=== PATIENT | female | born 1965 | race American Indian/Alaskan Native ===

== ENCOUNTER 2019-05-22 09:00 | Inpatient (IN) | payer BC, OTHER ==
[2019-05-22 09:50] LABS: Basophils # (Auto) 0.1 K/mm3 (0.0-0.1); Eosinophils # (Auto) 0.3 K/mm3 (0.0-0.4); Eosinophils % (Auto) 2.8 % (0.0-4.3); Hematocrit 38.3 % (30.3-42.9); Hemoglobin 12.7 gm/dl (10.1-14.3); Lymphocytes # (Auto) 1.9 K/mm3 (1.2-5.4); Lymphocytes % (Auto) 21.1 % (13.4-35.0); Mean Corpuscular HGB Conc 33 % (30-34); Mean Corpuscular Volume 89 fl (79-97); Monocytes # (Auto) 0.5 K/mm3 (0.0-0.8); Monocytes % (Auto) 5.3 % (0.0-7.3); Platelet Count 167 K/mm3 (140-440); Red Blood Count 4.28 M/mm3 (3.65-5.03); Red Cell Distribution Width 15.9 % (13.2-15.2)
--- NOTE | 2019-05-22 09:55 | XRay Report ---
CHEST 2 VIEWS INDICATION: Chest pain for 2 days. COMPARISON: None FINDINGS: Support devices: None. Heart: Mild cardiomegaly. Lungs/pleura: Mild to moderate pulmonary venous congestion. The lungs are generally clear otherwise. No evidence for consolidation, pleural effusion or pneumothorax. Additional findings: None. IMPRESSION: Cardiomegaly and pulmonary venous congestion and Signer Name: Ilir Tovar Jr, MD Signed: 05/22/2019 9:51 AM Workstation Name: [id number]
[2019-05-22 10:07] LABS: BUN/Creatinine Ratio 18; Blood Urea Nitrogen 14 mg/dL (7-17); Calcium 8.8 mg/dL (8.4-10.2); Hemolysis Index 5
[2019-05-22] MEDS ORDERED: DUONEB *Not for PRN Use IH ONE (10:13)
[2019-05-22] MEDS ORDERED: APRESOLINE IV ONE (10:13)
--- NOTE | 2019-05-22 10:18 | Emergency Department Report ---
ED Chest Pain HPI - General Chief Complaint: Chest Pain Stated Complaint: CHAD/CHEST TIGHT Time Seen by Provider: 05/22/19 10:02 Source: patient Mode of arrival: Ambulatory Limitations: No Limitations - History of Present Illness Initial Comments: This 53-year-old -[place] female presents to the emergency department with a one-day history of some generalized chest tightness and shortness of breath. She denies any fever, nausea, vomiting, back pain or diaphoresis. Patient presents with elevated blood pressure but did not take her morning blood pressure medications other than wearing a clonidine patch that lasts for 7 days. She has a past medical history of hypertension and CVA without residual deficits. She otherwise has not taken anything for her symptoms prior to presentation. No lower extremity edema. She says that her son just from congestive heart failure. No recent travel. She has a primary care physician but has not seen them regarding her symptoms. - Related Data Home Medications Medication Instructions Recorded Confirmed Last Taken Aspirin [Aspirin BABY CHEW TAB] 81 mg PO QDAY 07/27/15 05/22/19 05/21/19 Labetalol [Normodyne] 200 mg PO TID 07/27/15 05/22/19 05/21/19 Levothyroxine [Synthroid] 75 mcg PO QAM 07/27/15 05/22/19 05/21/19 NIFEdipine XL [Procardia Xl] 1.5 tab PO DAILY 07/27/15 05/22/19 05/21/19 Previous Rx's Medication Instructions Recorded Last Taken Type HYDROcodone/APAP 5-325 [[place] 1 each PO Q6HR PRN #20 tablet 07/27/15 05/21/19 Rx 5/325] Allergies Allergy/AdvReac Type Severity Reaction Status Date / Time No Known Allergies Allergy Unverified 07/27/15 09:04 Heart Score - HEART Score History: Moderately suspicious EKG: Normal Age: 45-65 Risk factors: 1-2 risk factors Troponin: < normal limit HEART Score: 3 ED Review of Systems ROS: Stated complaint: CHAD/CHEST TIGHT Other details as noted in HPI Comment: All other systems reviewed and negative Constitutional: denies: chills, fever Eyes: denies: eye pain, vision change ENT: denies: ear pain, throat pain Respiratory: shortness of breath. denies: cough Cardiovascular: chest pain. denies: edema Gastrointestinal: denies: abdominal pain, vomiting Genitourinary: denies: dysuria, discharge Musculoskeletal: denies: back pain, arthralgia Skin: denies: rash, lesions Neurological: denies: headache, weakness ED Past Medical Hx - Past Medical History Hx Hypertension: Yes Hx CVA: Yes - Social History Smoking Status: Never Smoker Substance Use Type: None - Medications Home Medications: Home Medications Medication Instructions Recorded Confirmed Last Taken Type Aspirin [Aspirin BABY CHEW TAB] 81 mg PO QDAY 07/27/15 05/22/19 05/21/19 History HYDROcodone/APAP 5-325 [[place] 1 each PO Q6HR PRN #20 tablet 07/27/15 05/22/19 05/21/19 Rx 5/325] Labetalol [Normodyne] 200 mg PO TID 07/27/15 05/22/19 05/21/19 History Levothyroxine [Synthroid] 75 mcg PO QAM 07/27/15 05/22/19 05/21/19 History NIFEdipine XL [Procardia Xl] 1.5 tab PO DAILY 07/27/15 05/22/19 05/21/19 History ED Physical Exam - General Limitations: No Limitations - Other Other exam information: GENERAL: The patient is well-developed well-nourished. HENT: Normocephalic. Atraumatic. Patient has moist mucous membranes. EYES: Extraocular motions are intact. NECK: Supple. Trachea is midline. CHEST/LUNGS: Coarse breath sounds at the chest. No tachypnea or accessory muscle use. There is no respiratory distress noted. HEART/CARDIOVASCULAR: Regular. There is no tachycardia. There is no murmur. ABDOMEN: Abdomen is soft, nontender. Patient has normal bowel sounds. There is no abdominal distention. SKIN: Skin is warm and dry. NEURO: The patient is awake, alert, and oriented. The patient is cooperative. The patient has no focal neurologic deficits. Normal speech. MUSCULOSKELETAL: There is no tenderness or deformity. There is no evidence of acute injury. ED Course Vital Signs 05/22/19 05/22/19 05/22/19 09:06 10:11 10:42 Temperature 98.2 F Pulse Rate 63 58 L 60 Pulse Rate [ Bilateral] Respiratory 20 16 Rate Respiratory Rate [Bilateral ] Blood Pressure 215/123 186/98 Blood Pressure 194/106 [Left] O2 Sat by Pulse 99 99 Oximetry 05/22/19 05/22/19 05/22/19 11:12 11:28 12:32 Temperature Pulse Rate Pulse Rate [ 58 L Bilateral] Respiratory Rate Respiratory 20 Rate [Bilateral ] Blood Pressure Blood Pressure 165/86 146/79 [Left] O2 Sat by Pulse Oximetry NAZANIN score - Nazanin Score Age > 65: (0) No Aspirin use within the Past 7 Days: (0) No 3 or more CAD Risk Factors: (0) No 2 or more Angina events in past 24 hrs: (1) Yes Known CAD with more than 50% Stenosis: (0) No Elevated Cardiac Markers: (0) No ST Deviation Greater than 0.5mm: (0) No NAZANIN Score: 1 ED Medical Decision Making - Lab Data Result diagrams: 05/22/19 09:35 05/22/19 09:35 - EKG Data -: EKG Interpreted by Me EKG shows normal: sinus rhythm, axis, intervals, QRS complexes (LVH), ST-T waves (t wave inversions lateral leads) Rate: normal - EKG Data When compared to previous EKG there are: previous EKG unavailable Interpretation: LVH (and T wave inversions to lateral leads) - Radiology Data Radiology results: report reviewed, image reviewed interpreted by me: Chest x-ray shows some cardio megaly and pulmonary vascular congestion. CTA CHEST WITH CONTRAST INDICATION : Chest pain, elevated d-dimer. TECHNIQUE: Axial imaging performed through the chest, with contrast bolus timing set to maximize opacification of the pulmonary arteries. Sagittal and coronal reformatted images. 3-plane MIP reformatted images were obtained. All CT scans at this location are performed using CT dose reduction for ALARA by means of automated exposure control. 100 mL of intravenous contrast administered. COMPARISON: None FINDINGS: Bolus: Contrast bolus timing is adequate. PTE: No filling defect is present to suggest PTE. Mediastinum: Mild cardiomegaly is evident. No pericar dial effusion. The thoracic aorta is within normal limits. The thyroid gland, tracheobronchial tree and esophagus are unremarkable. No pathologic mediastinal adenopathy. Lungs: Moderate pulmonary venous congestion is evident. No evidence for underlying parenchymal lung disease, mass or consolidation. No pneumothorax. Small layering left pleural effusion and moderate layering right pleural effusion are identified. 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 There is no obvious bony destruction or associated soft tissue mass. Upper abdomen: Limited imaging of the upper abdomen shows nothing acute. IMPRESSION: No evidence for pulmonary embolus. Findings compatible with volume overload or mild CHF. 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 Please correlate with the patient and consider further imaging with MRI with and without contrast if bone pain is present. - Medical Decision Making This patient presents with some generalized chest tightness and shortness of breath that has been going on since last night. Chest x-ray shows some p ulmonary vascular congestion and cardiomegaly. Labs show a BNP greater than 1000 and a slightly elevated an equivocal d-dimer. CT angiography of the chest shows no pulmonary embolism but does show some findings compatible with CHF. She was given a breathing treatment, some pain medication and a dose of Lasix to start diuresis. Patient will be admitted to the hospital for further evaluation for her new onset CHF and was sent for admission by the hospitalist, Dr. Burroughs. - Differential Diagnosis CHF, PE, PA, Pneumonia Critical Care Time: No Critical care attestation.: If time is entered above; I have spent that time in minutes in the direct care of this critically ill patient, excluding procedure time. ED Disposition Clinical Impression: Acute chest pain, New onset of congestive heart failure Hypertension Qualifiers: Hypertension type: essential hypertension Qualified Code(s): I10 - Essential (primary) hypertension Disposition: OP ADMIT IP TO THIS HOSP Is pt being admited?: Yes Condition: Fair Time of Disposition: 12:01
[2019-05-22] MEDS ORDERED: BABY ASPIRIN PO ONE (10:32)
[2019-05-22] MEDS ORDERED: LASIX IV ONE (11:01)
--- NOTE | 2019-05-22 12:37 | Cat Scan Report ---
CTA CHEST WITH CONTRAST INDICATION : Chest pain, elevated d-dimer. TECHNIQUE: Axial imaging performed through the chest, with contrast bolus timing set to maximize opa cification of the pulmonary arteries. Sagittal and coronal reformatted images. 3-plane MIP reformatte d images were obtained. All CT scans at this location are performed using CT dose reduction for ALAR A by means of automated exposure control. 100 mL of intravenous contrast administered. COMPARISON: None FINDINGS: Bolus: Contrast bolus timing is adequate. PTE: No filling defect is present to suggest PTE. Mediastinum: Mild cardiomegaly is evident. No pericardial effusion. The thoracic aorta is within nor mal limits. The thyroid gland, tracheobronchial tree and esophagus are unremarkable. No pathologic m ediastinal adenopathy. Lungs: Moderate pulmonary venous congestion is evident. No evidence for underlying parenchymal lung disease, mass or consolidation. No pneumothorax. Small layering left pleural effusion and moderate la yering right pleural effusion are identified. 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 There is no obvious bony destruction or associated soft tissue mass. Upper abdomen: Limited imaging of the upper abdomen shows nothing acute. IMPRESSION: No evidence for pulmonary embolus. Findings compatible with volume overload or mild CHF. 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 Please correlate with the patient and consider further imaging with MRI with and without contrast if bone pain is present. Signer Name: Ilir Tovar Jr, MD Signed: 05/22/2019 12:33 PM Workstation Name: [id number]
--- NOTE | 2019-05-22 18:41 | History and Physical Report ---
History of Present Illness Date of examination: 05/22/19 Date of admission: 05/22/19 12:01 Chief complaint: Chest pain 1 day History of present illness: 53 y/o AAF with Hx of Htn and Hypothyroidism comes in for chest tightness of 1 day.Chest tightness is retrosternal.Pain is 7 on a scale of 1 to 10. No palpitations or diaphoresis. No exacerbating or relieving factors. No fever or chills. Patient had a cerebrovascular accident without residual deficits in the past. No recent travel. No shortness of breath on exertion. Past Medical History Hypertension CVA Hypothyroidism past surgical history None Family history HTN Social history Never Smoker Medications Home Medications: Home Medications Medication Instructions Recorded Confirmed Last Taken Type Aspirin [Aspirin BABY CHEW TAB] 81 mg PO QDAY 07/27/15 05/22/19 05/21/19 History HYDROcodone/APAP 5-325 [[place] 1 each PO Q6HR PRN #20 tablet 07/27/15 05/22/19 05/21/19 Rx 5/325] Labetalol [Normodyne] 200 mg PO TID 07/27/15 05/22/19 05/21/19 History Levothyroxine [Synthroid] 75 mcg PO QAM 07/27/15 05/22/19 05/21/19 History NIFEdipine XL [Procardia Xl] 1.5 tab PO DAILY 07/27/15 05/22/19 05/21/19 History Review of Systems ROS: Stated complaint: CHAD/CHEST TIGHT Other details as noted in HPI Comment: All other systems reviewed and negative Constitutional: denies: chills, fever Eyes: denies: eye pain, vision change ENT: denies: ear pain, throat pain Respiratory: shortness of breath. denies: cough Cardiovascular: chest pain. denies: edema Gastrointestinal: denies: abdominal pain, vomiting Genitourinary: denies: dysuria, discharge Musculoskeletal: denies: back pain, arthralgia Skin: denies: rash, lesions Neurological: denies: headache, weakness Medications and Allergies Allergies Allergy/AdvReac Type Severity Reaction Status Date / Time No Known Allergies Allergy Unverified 07/27/15 09:04 Home Medications Medication Instructions Recorded Confirmed Last Taken Type Aspirin [Aspirin BABY CHEW TAB] 81 mg PO QDAY 07/27/15 05/22/19 05/21/19 History HYDROcodone/APAP 5-325 [[place] 1 each PO Q6HR PRN #20 tablet 07/27/15 05/22/19 05/21/19 Rx 5/325] Labetalol [Normodyne] 200 mg PO TID 07/27/15 05/22/19 05/21/19 History Levothyroxine [Synthroid] 75 mcg PO QAM 07/27/15 05/22/19 05/21/19 History NIFEdipine XL [Procardia Xl] 1.5 tab PO DAILY 07/27/15 05/22/19 05/21/19 History Exam - Constitutional Vitals: Temp Pulse Resp BP Pulse Ox 98.4 F 65 18 164/93 98 05/22/19 16:22 05/22/19 16:22 05/22/19 16:22 05/22/19 16:22 05/22/19 16:22 General appearance: Present: no acute distress, well-nourished - EENT Eyes: Present: PERRL ENT: hearing intact, clear oral mucosa - Neck Neck: Present: supple, normal ROM - Respiratory Respiratory effort: normal Respiratory: bilateral: CTA - Cardiovascular Heart rate: 63 Rhythm: regular Heart Sounds: Present: S1 & S2. Absent: rub, click - Extremities Extremities: no ischemia, pulses intact, pulses symmetrical, No edema Peripheral Pulses: within normal limits - Abdominal General gastrointestinal: Present: soft, non-tender, non-distended, normal bowel sounds Female genitourinary: Present: normal - Rectal Rectal Exam: deferred - Integumentary Integumentary: Present: clear, warm, dry - Musculoskeletal Musculoskeletal: gait normal, strength equal bilaterally - Psychiatric Psychiatric: appropriate mood/affect, intact judgment & insight - Neurologic Neurologic: CNII-XII intact, moves all extremities Results - Labs CBC & Chem 7: 05/22/19 09:35 05/22/19 09:35 Labs: Laboratory Last Values WBC 9.1 K/mm3 (4.5-11.0) 05/22/19 09:35 RBC 4.28 M/mm3 (3.65-5.03) 05/22/19 09:35 Hgb 12.7 gm/dl (10.1-14.3) 05/22/19 09:35 Hct 38.3 % (30.3-42.9) 05/22/19 09:35 MCV 89 fl (79-97) 05/22/19 09:35 MCH 30 pg (28-32) 05/22/19 09:35 MCHC 33 % (30-34) 05/22/19 09:35 RDW 15.9 % (13.2-15.2) H 05/22/19 09:35 Plt Count 167 K/mm3 (140-440) 05/22/19 09:35 Lymph % (Auto) 21.1 % (13.4-35.0) 05/22/19 09:35 [place] % (Auto) 5.3 % (0.0-7.3) 05/22/19 09:35 Eos % (Auto) 2.8 % (0.0-4.3) 05/22/19 09:35 Baso % (Auto) 1.0 % (0.0-1.8) 05/22/19 09:35 Lymph # 1.9 K/mm3 (1.2-5.4) 05/22/19 09:35 [place] # 0.5 K/mm3 (0.0-0.8) 05/22/19 09:35 Eos # 0.3 K/mm3 (0.0-0.4) 05/22/19 09:35 Baso # 0.1 K/mm3 (0.0-0.1) 05/22/19 09:35 Seg Neutrophils % 69.8 % (40.0-70.0) 05/22/19 09:35 Seg Neutrophils # 6.4 K/mm3 (1.8-7.7) 05/22/19 09:35 253.08 ng/mlDDU (0-234) H 05/22/19 10:14 Sodium 141 mmol/L (137-145) 05/22/19 09:35 Potassium 3.9 mmol/L (3.6-5.0) 05/22/19 09:35 Chloride 104.7 mmol/L (98-107) 05/22/19 09:35 Carbon Dioxide 25 mmol/L (22-30) 05/22/19 09:35 15 mmol/L 05/22/19 09:35 BUN 14 mg/dL (7-17) 05/22/19 09:35 0.8 mg/dL (0.7-1.2) 05/22/19 09:35 Estimated GFR > 60 ml/min 05/22/19 09:35 18 % 05/22/19 09:35 Glucose 115 mg/dL (65-100) H 05/22/19 09:35 Calcium 8.8 mg/dL (8.4-10.2) 05/22/19 09:35 < 0.010 ng/mL (0.00-0.029) 05/22/19 15:01 NT-Pro-B Natriuret Pep 1007 pg/mL (0-900) H 05/22/19 09:35 TSH 7.440 mlU/mL (0.270-4.200) H 05/22/19 10:14 Free T4 0.81 ng/dL (0.76-1.46) 05/22/19 11:18 Short CBC 05/22/19 Range/Units 09:35 WBC 9.1 (4.5-11.0) K/mm3 Hgb 12.7 (10.1-14.3) gm/dl Hct 38.3 (30.3-42.9) % Plt Count 167 (140-440) K/mm3 [facility] 05/22/19 09:35 Sodium 141 Potassium 3.9 Chloride 104.7 Carbon Dioxide 25 BUN 14 Creatinine 0.8 Glucose 115 H Calcium 8.8 Cardiac Enzymes 05/22/19 05/22/19 05/22/19 Range/Units 09:35 13:37 15:01 Troponin T < 0.010 < 0.010 < 0.010 (0.00-0.029) ng/mL - Imaging and Cardiology EKG: report reviewed (normal sinus rhythm 63/m left ventricular hypertrophy) Chest x-ray: report reviewed (cardiomegaly and pulmonary venous congestion) Assessment and Plan Advance Directives: Yes (Full code) VTE prophylaxis?: Chemical Plan of care discussed with patient/family: Yes - Patient Problems (1) Acute chest pain Current Visit: Yes Status: Acute Plan to address problem: chest pain ==r/o [place] protocol Serial Troponins Lexiscan in AM Cardiolgy consult requested (2) Hypertension Current Visit: Yes Status: Acute Qualifiers: Hypertension type: essential hypertension Qualified Code(s): I10 - Essential (primary) hypertension Plan to address problem: Cont antihypertensives (3) Hypothyroidism Current Visit: Yes Status: Chronic Qualifiers: Hypothyroidism type: acquired Qualified Code(s): E03.9 - Hypothyroidism, unspecified Plan to address problem: Cont [id number] mcg po qd Check TSH (4) DVT prophylaxis Current Visit: Yes Status: Acute Plan to address problem: Initiated on Lovenox and GI prophylaxis
[2019-05-22] MEDS ORDERED: DILAUDID IV PRN (18:42)
[2019-05-22] MEDS ORDERED: ZOFRAN IV PRN ×2 (18:42→18:48)
[2019-05-22] MEDS ORDERED: SODIUM CHLORIDE FLUSH SYRINGE 10 ML IV PRN ×2 (18:42→18:48)
[2019-05-22] MEDS ORDERED: TYLENOL PO PRN ×2 (18:42→18:48)
[2019-05-22] MEDS ORDERED: PERCOCET 5/325 PO PRN (18:42)
[2019-05-22] MEDS: PROCARDIA XL PO SCH (21:20)
[2019-05-22] MEDS: BABY ASPIRIN PO SCH (21:20)
[2019-05-22] MEDS: NORMODYNE PO SCH (21:20)
[2019-05-22] MEDS: PEPCID IV SCH (21:20)
[2019-05-22] MEDS: SODIUM CHLORIDE FLUSH SYRINGE 10 ML IV SCH (21:21)
[2019-05-22] MEDS ORDERED: SODIUM CHLORIDE FLUSH SYRINGE 10 ML IV SCH (22:00)
[2019-05-23] MEDS: SYNTHROID PO SCH (05:05)
[2019-05-23 06:51] LABS: Alanine Aminotransferase 12 units/L (7-56); Albumin 3.6 g/dL (3.9-5); BUN/Creatinine Ratio 25; Blood Urea Nitrogen 20 mg/dL (7-17); Calcium 8.8 mg/dL (8.4-10.2); Hemolysis Index 30
--- NOTE | 2019-05-23 08:48 | Progress Note ---
Assessment and Plan Assessment and plan: -- Acute chest pain Current Visit: Yes Status: Acute serial cardiac enzymes and echocardiogram Cardiology following, possible Lexiscan . --Hypokalemia; Replenish with Kcl --Malignant Hypertension; on admission moderate control Current Visit: Yes Status: Acute Cont current antihypertensives and when necessary medications --Hypothyroidism Current Visit: Yes Status: Chronic Cont [id number] mcg po qd -- DVT prophylaxis Current Visit: Yes Status: Acute Initiated on Lovenox and GI prophylaxis Monitor closely and adjust management as needed possible discharge in 1-2 days if stable Follow cardiology recommendations History Interval history: Patient Seen and examined medical records reviewed Patient feels slightly better no new complaints Vital signs noted to Hospitalist Physical - Constitutional Vitals: Temp Pulse Resp BP Pulse Ox 98.2 F 68 18 137/74 99 05/23/19 07:49 05/22/19 23:50 05/23/19 07:49 05/23/19 07:49 05/22/19 23:50 General appearance: Present: no acute distress, well-nourished - EENT Eyes: Present: PERRL, EOM intact - Neck Neck: Present: supple, normal ROM - Respiratory Respiratory effort: normal Respiratory: bilateral: diminished, negative: rales, rhonchi, wheezing - Cardiovascular Rhythm: regular Heart Sounds: Present: S1 & S2 - Extremities Extremities: no ischemia, No edema - Abdominal General gastrointestinal: soft, non-tender, non-distended, normal bowel sounds - Integumentary Integumentary: Present: clear, warm - Psychiatric Psychiatric: appropriate mood/affect, cooperative - Neurologic Neurologic: CNII-XII intact, moves all extremities Results - Labs CBC & Chem 7: 05/22/19 09:35 05/23/19 05:34 Labs: Laboratory Last Values WBC 9.1 K/mm3 (4.5-11.0) 05/22/19 09:35 RBC 4.28 M/mm3 (3.65-5.03) 05/22/19 09:35 Hgb 12.7 gm/dl (10.1-14.3) 05/22/19 09:35 Hct 38.3 % (30.3-42.9) 05/22/19 09:35 MCV 89 fl (79-97) 05/22/19 09:35 MCH 30 pg (28-32) 05/22/19 09:35 MCHC 33 % (30-34) 05/22/19 09:35 RDW 15.9 % (13.2-15.2) H 05/22/19 09:35 Plt Count 167 K/mm3 (140-440) 05/22/19 09:35 Lymph % (Auto) 21.1 % (13.4-35.0) 05/22/19 09:35 [place] % (Auto) 5.3 % (0.0-7.3) 05/22/19 09:35 Eos % (Auto) 2.8 % (0.0-4.3) 05/22/19 09:35 Baso % (Auto) 1.0 % (0.0-1.8) 05/22/19 09:35 Lymph # 1.9 K/mm3 (1.2-5.4) 05/22/19 09:35 [place] # 0.5 K/mm3 (0.0-0.8) 05/22/19 09:35 Eos # 0.3 K/mm3 (0.0-0.4) 05/22/19 09:35 Baso # 0.1 K/mm3 (0.0-0.1) 05/22/19 09:35 Seg Neutrophils % 69.8 % (40.0-70.0) 05/22/19 09:35 Seg Neutrophils # 6.4 K/mm3 (1.8-7.7) 05/22/19 09:35 253.08 ng/mlDDU (0-234) H 05/22/19 10:14 Sodium 142 mmol/L (137-145) 05/23/19 05:34 Potassium 3.4 mmol/L (3.6-5.0) L 05/23/19 05:34 Chloride 104.3 mmol/L (98-107) 05/23/19 05:34 Carbon Dioxide 21 mmol/L (22-30) L 05/23/19 05:34 20 mmol/L 05/23/19 05:34 BUN 20 mg/dL (7-17) H 05/23/19 05:34 0.8 mg/dL (0.7-1.2) 05/23/19 05:34 Estimated GFR > 60 ml/min 05/23/19 05:34 25 % 05/23/19 05:34 Glucose 108 mg/dL (65-100) H 05/23/19 05:34 5.8 % (4-6) 05/22/19 19:46 Calcium 8.8 mg/dL (8.4-10.2) 05/23/19 05:34 0.20 mg/dL (0.1-1.2) 05/23/19 05:34 AST 15 units/L (5-40) 05/23/19 05:34 ALT 12 units/L (7-56) 05/23/19 05:34 41 units/L (35-129) 05/23/19 05:34 < 0.010 ng/mL (0.00-0.029) 05/22/19 15:01 NT-Pro-B Natriuret Pep 1007 pg/mL (0-900) H 05/22/19 09:35 6.8 g/dL (6.3-8.2) 05/23/19 05:34 3.6 g/dL (3.9-5) L 05/23/19 05:34 1.1 % 05/23/19 05:34 TSH 7.440 mlU/mL (0.270-4.200) H 05/22/19 10:14 Free T4 0.81 ng/dL (0.76-1.46) 05/22/19 11:18 Active Medications - Current Medications Current Medications: Generic Name Dose Route Start Last Admin Trade Name Freq PRN Reason Stop Dose Admin Acetaminophen 650 mg 05/22/19 18:42 Tylenol PO Q4H PRN Pain MILD(1-3)/Fever >100.5/CASTELLANOS Aspirin 81 mg 05/22/19 20:00 05/22/19 21:20 Baby Aspirin PO 81 mg QDAY KELVIN Administration Famotidine 20 mg 05/22/19 22:00 05/22/19 21:20 Pepcid IV 20 mg BID KELVIN Administration Hydromorphone HCl 0.5 mg 05/22/19 18:42 Dilaudid IV Q3H PRN Pain , Severe (7-10) Labetalol HCl 200 mg 05/22/19 20:00 05/22/19 21:20 Normodyne PO 200 mg TID KELVIN Administration Levothyroxine Sodium 75 mcg 05/23/19 06:00 05/23/19 05:05 Synthroid PO 75 mcg DAILY@0600 KELVIN Administration Nifedipine 60 mg 05/22/19 20:00 05/22/19 21:20 Procardia Xl PO 60 mg DAILY KELVIN Administration Ondansetron HCl 4 mg 05/22/19 18:42 Zofran IV Q8H PRN Nausea And Vomiting Oxycodone/Acetaminophen 1 tab 05/22/19 18:42 Percocet 5/325 PO Q6H PRN Pain, Moderate (4-6) Sodium Chloride 10 ml 05/22/19 22:00 05/22/19 21:21 Sodium Chloride Flush Syringe 10 Ml IV 10 ml BID KELVIN Administration Sodium Chloride 10 ml 05/22/19 18:42 Sodium Chloride Flush Syringe 10 Ml IV PRN PRN LINE FLUSH
[2019-05-23] MEDS ORDERED: K-DUR PO ONE ×2 (10:00→22:58)
[2019-05-23] MEDS ORDERED: SYNTHROID PO SCH (10:00)
[2019-05-23] MEDS: PROCARDIA XL PO SCH (12:12)
[2019-05-23] MEDS: BABY ASPIRIN PO SCH (12:13)
[2019-05-23] MEDS: PEPCID IV SCH ×2 (12:13→22:30)
[2019-05-23] MEDS: SODIUM CHLORIDE FLUSH SYRINGE 10 ML IV SCH ×2 (12:14→22:30)
[2019-05-23] MEDS: NORMODYNE PO SCH ×3 (12:14→22:30)
--- NOTE | 2019-05-23 15:41 | Consultation ---
History of Present Illness Consult date: 05/23/19 Consult reason: chest pain History of present illness: Patient is a 53-year old female who presented with shortness of breath and chest pain. Patient has a history of prior CVA, hypertension and hypothyroidism. She denies a prior cardiac history. Noted a blood pressure of 215/123 on presentation. Chest x-ray reports cardiomegaly with mild interstitial edema. No evidence of PE by chest CTA. Initial labs measured a TSH at 7.4. BNP greater than 1000. An ECG is sinus rhythm, LVH with nonspecific Twave abnormalities. Medications and Allergies Allergies Allergy/AdvReac Type Severity Reaction Status Date / Time No Known Allergies Allergy Unverified 07/27/15 09:04 Home Medications Medication Instructions Recorded Confirmed Last Taken Type Aspirin [Aspirin BABY CHEW TAB] 81 mg PO QDAY 07/27/15 05/22/19 05/21/19 History HYDROcodone/APAP 5-325 [[place] 1 each PO Q6HR PRN #20 tablet 07/27/15 05/22/19 05/21/19 Rx 5/325] Labetalol [Normodyne] 200 mg PO TID 07/27/15 05/22/19 05/21/19 History Levothyroxine [Synthroid] 75 mcg PO QAM 07/27/15 05/22/19 05/21/19 History NIFEdipine XL [Procardia Xl] 1.5 tab PO DAILY 07/27/15 05/22/19 05/21/19 History Active Meds: Active Medications Acetaminophen (Tylenol) 650 mg PO Q4H PRN PRN Reason: Pain MILD(1-3)/Fever >100.5/[place] Aspirin (Baby Aspirin) 81 mg PO QDAY [facility] Last Admin: 05/23/19 12:13 Dose: 81 mg Documented by: Famotidine (Pepcid) 20 mg IV BID [facility] Last Admin: 05/23/19 12:13 Dose: 20 mg Documented by: Hydromorphone HCl (Dilaudid) 0.5 mg IV Q3H PRN PRN Reason: Pain , Severe (7-10) Last Admin: 05/23/19 12:12 Dose: 0.5 mg Documented by: Labetalol HCl (Normodyne) 200 mg PO TID [facility] Last Admin: 05/23/19 12:14 Dose: 200 mg Documented by: Levothyroxine Sodium (Synthroid) 75 mcg PO DAILY@0600 [facility] Last Admin: 05/23/19 05:05 Dose: 75 mcg Documented by: Nifedipine (Procardia Xl) 60 mg PO DAILY [facility] Last Admin: 05/23/19 12:12 Dose: 60 mg Documented by: Ondansetron HCl (Zofran) 4 mg IV Q8H PRN PRN Reason: Nausea And Vomiting Oxycodone/Acetaminophen (Percocet 5/325) 1 tab PO Q6H PRN PRN Reason: Pain, Moderate (4-6) Sodium Chloride (Sodium Chloride Flush Syringe 10 Ml) 10 ml IV BID [facility] Last Admin: 05/23/19 12:14 Dose: 10 ml Documented by: Sodium Chloride (Sodium Chloride Flush Syringe 10 Ml) 10 ml IV PRN PRN PRN Reason: LINE FLUSH Physical Examination Vital Signs Temp Pulse Resp BP Pulse Ox 98.2 F 63 20 215/123 99 05/22/19 09:06 05/22/19 09:06 05/22/19 09:06 05/22/19 09:06 05/22/19 09:06 General appearance: no acute distress HEENT: Positive: PERRL Neck: Positive: trachea midline Cardiac: Positive: Reg Rate and Rhythm Lungs: Positive: Decreased Breath Sounds Neuro: Positive: Grossly Intact Results 05/22/19 09:35 05/23/19 05:34 Cardiac Enzymes 05/23/19 Range/Units 05:34 AST 15 (5-40) units/L Comprehensive Metabolic Panel 05/23/19 Range/Units 05:34 Sodium 142 (137-145) mmol/L Potassium 3.4 L (3.6-5.0) mmol/L Chloride 104.3 (98-107) mmol/L Carbon Dioxide 21 L (22-30) mmol/L BUN 20 H (7-17) mg/dL Creatinine 0.8 (0.7-1.2) mg/dL Glucose 108 H (65-100) mg/dL Calcium 8.8 (8.4-10.2) mg/dL AST 15 (5-40) units/L ALT 12 (7-56) units/L Alkaline Phosphatase 41 (35-129) units/L Total Protein 6.8 (6.3-8.2) g/dL Albumin 3.6 L (3.9-5) g/dL Assessment and Plan Acute heart failure Uncontrolled Hypertension Hypothyroidism TSH 7.4 Prior CVA We will obtain an echocardiogram for LVEF assessment.
[2019-05-24 07:10] LABS: BUN/Creatinine Ratio 22; Blood Urea Nitrogen 13 mg/dL (7-17); Calcium 8.6 mg/dL (8.4-10.2); Hemolysis Index 24
[2019-05-24] MEDS: SYNTHROID PO SCH (08:21)
[2019-05-24] MEDS: PROCARDIA XL PO SCH (09:15)
[2019-05-24] MEDS: BABY ASPIRIN PO SCH (09:15)
[2019-05-24] MEDS: NORMODYNE PO SCH ×2 (09:15→14:20)
[2019-05-24] MEDS: PEPCID IV SCH (09:16)
[2019-05-24] MEDS: SODIUM CHLORIDE FLUSH SYRINGE 10 ML IV SCH (09:17)
--- NOTE | 2019-05-24 09:35 | Progress Note ---
Assessment and Plan Acute heart failure with preserved EF (EF 50-55% based on Echo 05/23/19) Uncontrolled systemic hypertension Hypothyroidism Recommend: Continue medical therapy for Htn Monitor and maintain electrolytes in normal range OK to DC later today or tomorrow from cardiac perspective. Subjective Date of service: 05/24/19 Interval history: Pt reports dyspnea is much improved. Objective Vital Signs Temp Pulse Resp BP Pulse Ox 05/24/19 09:15 76 138/72 05/24/19 08:52 76 05/24/19 05:00 66 05/24/19 04:28 98.0 F 70 18 126/72 95 05/24/19 00:24 98.1 F 71 18 129/79 99 05/23/19 22:27 98 05/23/19 22:00 18 05/23/19 21:00 75 05/23/19 19:55 98.5 F 77 18 144/78 96 05/23/19 16:58 98.2 F 57 L 18 144/77 85 05/23/19 14:05 99 05/23/19 13:00 68 05/23/19 12:14 98.2 F 60 18 163/84 54 L - Physical Examination HEENT: Positive: PERRL Neck: Positive: trachea midline Cardiac: Positive: Reg Rate and Rhythm Lungs: Positive: clear to auscultation Neuro: Positive: Grossly Intact Abdomen: Positive: Soft, Active Bowel Sounds Extremities: Absent: edema - Labs and Meds Comprehensive Metabolic Panel 05/24/19 Range/Units 05:46 Sodium 140 (137-145) mmol/L Potassium 3.8 (3.6-5.0) mmol/L Chloride 104.5 (98-107) mmol/L Carbon Dioxide 22 (22-30) mmol/L BUN 13 (7-17) mg/dL Creatinine 0.6 L (0.7-1.2) mg/dL Glucose 108 H (65-100) mg/dL Calcium 8.6 (8.4-10.2) mg/dL - Imaging and Cardiology EKG: report reviewed (normal sinus rhythm 63/m left ventricular hypertrophy)
[2019-05-24] MEDS ORDERED: LASIX PO SCH (10:00)
[2019-05-24] MEDS ORDERED: K-DUR PO SCH (10:00)
--- NOTE | 2019-05-24 13:14 | Discharge Summary ---
Providers - Providers Date of Admission: 05/22/19 12:01 Date of discharge: 05/24/19 Attending physician: ANA GOODWIN 05/22/19 18:42 Consult to Physician [CONS] Routine Comment: Consulting Provider: KOLE FLORES Physician Instructions: Reason For Exam: Chest pain Primary care physician: [facility] [employer] Hospitalization Condition: Fair Disposition: DC-01 TO HOME OR SELFCARE Time spent for discharge: 32 min Core Measure Documentation - Palliative Care Palliative Care/ Comfort Measures: Not Applicable - Core Measures Any of the following diagnoses?: none Exam - Constitutional Vitals: Temp Pulse Resp BP Pulse Ox 97.8 F 64 18 134/84 91 05/24/19 11:58 05/24/19 11:58 05/24/19 11:58 05/24/19 11:58 05/24/19 11:58 General appearance: Present: no acute distress, well-nourished - EENT Eyes: Present: PERRL, EOM intact - Neck Neck: Present: supple, normal ROM - Respiratory Respiratory effort: normal Respiratory: bilateral: diminished, negative: rales, rhonchi, wheezing - Cardiovascular Rhythm: regular Heart Sounds: Present: S1 & S2 - Extremities Extremities: no ischemia, No edema - Abdominal General gastrointestinal: Present: soft, non-tender, non-distended, normal bowel sounds - Integumentary Integumentary: Present: clear, warm - Musculoskeletal Musculoskeletal: strength equal bilaterally - Psychiatric Psychiatric: appropriate mood/affect, cooperative - Neurologic Neurologic: CNII-XII intact, moves all extremities Plan Activity: no restrictions Diet: low salt Additional Instructions: Low-sodium diet Follow up with: YVES BATEMAN MD [Referring] - 3-5 Days KOLE FLORES MD [Staff Physician] - 7 Days Prescriptions: Furosemide [Lasix] 20 mg PO QDAY #30 tablet
[2019-05-24 14:21] VITALS: BP 138/72
== END 2019-05-24 15:15 | disposition home or self-care (01) | DRG 291 ==
LOC: ED 09:00 → 4A 12:01
PROVIDERS: ADMIT Internal Medicine; ATTEND Internal Medicine
DX: I11.0 Hypertensive heart disease with heart failure (principal); I50.31 Acute diastolic (congestive) heart failure; E87.6 Hypokalemia; E03.9 Hypothyroidism, unspecified; Z86.73 Personal history of transient ischemic attack (TIA), and cerebral infarction without residual deficits; Z79.82 Long term (current) use of aspirin; Z79.899 Other long term (current) drug therapy; Z82.49 Family history of ischemic heart disease and other diseases of the circulatory system; I50.9 Heart failure, unspecified
CPT/HCPCS: 36415; 71045; 71275; 80048; 80053; 83036; 83880; 84439; 84443; 84484; 85025; 85379; 93005; 93010; 93306; 94644; 94760; 96374; 96375; G0378; J0360; J1170; J1940; Q9967

== ENCOUNTER 2021-12-27 07:38 | Day surgery (SDC) | payer BC ==
[2021-12-27 08:51] LABS: Basophils # (Auto) 0.1 K/mm3 (0.0-0.1); Basophils % (Auto) 1.5 % (0.0-1.8); Eosinophils # (Auto) 0.2 K/mm3 (0.0-0.4); Eosinophils % (Auto) 3.4 % (0.0-4.3); Hematocrit 38.6 % (30.3-42.9); Hemoglobin 12.9 gm/dl (10.1-14.3); Lymphocytes % (Auto) 32.3 % (13.4-35.0); Mean Corpuscular HGB Conc 33 % (30-34); Mean Corpuscular Volume 88 fl (79-97); Monocytes # (Auto) 0.4 K/mm3 (0.0-0.8); Monocytes % (Auto) 6.5 % (0.0-7.3); Platelet Count 161 K/mm3 (140-440); Red Cell Distribution Width 16.6 % (13.2-15.2)
[2021-12-27 08:52] LABS: Blood Urea Nitrogen 11 mg/dL (7-17); Calcium 9.4 mg/dL (8.4-10.2); Hemolysis Index 16
[2021-12-27 08:53] LABS: BUN/Creatinine Ratio 18
[2021-12-27 08:55] LABS: INR 0.82 (0.87-1.13)
[2021-12-27] MEDS ORDERED: HEPARIN 10,000 UNITS/10 ML VIAL ONE (09:23)
[2021-12-27] MEDS ORDERED: HEPARIN/NS 5000 UNIT/500ML 1,000 ML IR ONE (09:23)
[2021-12-27] MEDS ORDERED: LIDOCAINE (2%) 20 MG/1 ML VIAL 50 ML MDV INFILTRATI ONE (09:24)
[2021-12-27] MEDS: SODIUM CHLORIDE 0.9% 500 ML 500 ML IV SCH ×2 (09:34→10:22)
[2021-12-27] MEDS: MIDAZOLAM 2 MG/2 ML INJ ONE ×2 (09:53→10:32)
[2021-12-27] MEDS: fentaNYL 100 MCG/2 ML INJ ONE ×2 (09:54→10:33)
[2021-12-27] MEDS: LIDOCAINE (1%) 10 MG/1 ML VIAL 20 ML MDV ONE ×2 (10:22→10:33)
--- NOTE | 2021-12-27 11:35 | Electrocardiograph Report ---
[facility] Test Date: 2021-12-27 Test Time: 08:28:26 Pat Name: WYATT BRADLEY Department: Room: Gender: F Painter Supervisor: CARL : 1965 Requested By: ULYSSES SARAVIA Order Number: [id number] Reading MD: Shai Pugh Measurements Intervals [place] Rate: 56 P: 24 MA: 196 QRS: 18 QRSD: 101 T: 87 QT: 495 QTc: 477 Interpretive Statements Sinus rhythm Left ventricular hypertrophy No previous ECG available for comparison Electronically Signed On 12-27-2021 11:35:32 EDT by Shai Pugh
--- NOTE | 2021-12-27 11:40 | Discharge Summary ---
Short Stay Discharge Plan Activity: advance as tolerated Weight Bearing Status: Partial Weight Bearing Diet: low fat, low cholesterol, low salt Wound: keep clean and dry Special Instructions: no heavy lifting (3 days) Follow up with: PRIMARY CARE, [Primary Care Provider] - 7 Days JERILYN COOLEY MD [Staff Physician] - 7 Days
[2021-12-27] MEDS ORDERED: SODIUM CHLORIDE 0.9% 1000 ML 1,000 ML IV SCH (12:00)
[2021-12-27] MEDS ORDERED: traMADol 50 MG TAB PO PRN (12:00)
--- NOTE | 2021-12-27 13:40 | Cardiac Catherization Report ---
DATE OF SERVICE: 12/27/2021 CARDIAC CATHETERIZATION REPORT REASON FOR PROCEDURE: A 56-year-old woman referred for right and left heart catheterization for chest pain and shortness of breath. PROCEDURES: 1. Right heart catheterization. 2. Left heart catheterization. 3. Selective left and right coronary angiography. 4. Left ventricular angiography. 5. Sedation time start 10:33, end 10:55. DESCRIPTION OF PROCEDURE: The patient was prepped and draped in a sterile fashion after informed consent. The right femoral artery and vein were both entered using Seldinger technique. A 6-Trinidadian sheath was placed in the artery and an 8-Trinidadian sheath in the vein. A Frankford-Lo catheter was then advanced in the pulmonary artery position. Cardiac output was measured using thermodilution method. The pigtail catheter was then inserted into the left ventricle. Simultaneous left and right heart filling pressures were recorded. The Frankford-Lo catheter was then pulled back and right heart pressures recorded on pullback. The left ventricular angiography was then performed using the pigtail catheter, following which the pigtail was withdrawn across the aortic valve and transaortic valve gradient recorded. Selective left and right coronary angiography was then performed using a #4 left Sharita and #4 right Sharita. The catheters were then withdrawn, sheath withdrawn, hemostasis over the arterial site using an Angio-Seal device and over the venous site using manual compression. The patient was returned to the postprocedure unit in stable condition. There were no complications. FINDINGS: HEMODYNAMICS: Mean right atrial pressure was 15. Right ventricular pressure was 45/20. Pulmonary artery pressure was 45/25. The mean pulmonary artery wedge pressure was 25. Left ventricular end-diastolic pressure was 25-30. Ascending aortic pressure was 131/70. There was no significant pressure gradient on pullback across the aortic valve. Cardiac output was 4.9 liters per minute. Cardiac index was 2.7 liters per minute. CORONARY ANGIOGRAPHY: Left main coronary artery was angiographically normal. Left anterior descending artery and its diagonal branches were angiographically normal. The circumflex artery and its obtuse marginal branches were angiographically normal. The right coronary artery was of relatively small caliber, but was dominant. This vessel contained minimal irregularities in its mid segment, otherwise angiographically normal. Left ventricular systolic function was well preserved with left ventricular ejection fraction greater than 55% following an extrasystolic beat. CONCLUSION: 1. [id number] increase in right and left heart filling pressures, mild pulmonary hypertension. 2. Essentially, angiographically normal coronary arteries. 3. Well preserved left ventricular systolic function, ejection fraction greater than 55%. RECOMMENDATIONS: Risk factor modification and medical therapy. TID: [id number] RECEIPT: [id number] LATRICE/HUNTER/MALCOLM
[2021-12-27 15:31] VITALS: BP 110/68
== END 2021-12-27 16:00 | disposition home or self-care (01) ==
LOC: CATHLABREC 07:38
PROVIDERS: ATTEND Internal Medicine Cardiovascular Disease
DX: R07.89 Other chest pain (principal); R06.02 Shortness of breath; I42.9 Cardiomyopathy, unspecified; I27.20 Pulmonary hypertension, unspecified; Z79.899 Other long term (current) drug therapy; Z79.82 Long term (current) use of aspirin; I11.0 Hypertensive heart disease with heart failure; I50.9 Heart failure, unspecified; Z98.890 Other specified postprocedural states; E03.9 Hypothyroidism, unspecified; Z86.73 Personal history of transient ischemic attack (TIA), and cerebral infarction without residual deficits; E78.00 Pure hypercholesterolemia, unspecified
CPT/HCPCS: 36415; 80048; 85025; 85610; 85730; 93005; 93460; 99156; C1760; C1894; J1644; J2250; J3010; J3490; J7040; Q9967